=== PATIENT | female | born 1960 | race Two or more races ===

== ENCOUNTER 2023-04-02 12:44 | Outpatient (CLI) | payer OTHER ==
[~2023-04-02 12:44] MED LIST: NORFLEX100MG PO
== END 2023-04-02 12:56 | disposition home or self-care (01) ==
LOC: RAD 12:44
PROVIDERS: ATTEND Physical Medicine & Rehabilitation
DX: M54.50 Low back pain, unspecified (principal); M53.3 Sacrococcygeal disorders, not elsewhere classified